=== PATIENT | male | born 1970 | race African-American/Black ===

== ENCOUNTER 2021-06-30 20:06 | Emergency (ER) | payer OTHER ==
[~2021-06-30] VITALS: Ht 175.3 cm; Wt 77.1 kg
--- NOTE | 2021-06-30 20:10 | NUR ---
BIB 102 FOR FOUND LAYING DOWN ON THE GRASS. ADMITTED ON DRINKING ALCOHOL. PT AWAKE. TOLERATING R/A WELL WITH NO SOB. SAFETY MEASURES IN PLACE
[2021-06-30] MEDS ORDERED: HALOPERIDOL LACTATE INJ 5 MG/ML VIAL IM ONE (21:30)
[2021-06-30] MEDS ORDERED: HALOPERIDOL LACTATE INJ 5 MG/ML VIAL ONE (21:30)
--- NOTE | 2021-06-30 22:29 | NUR ---
PATIENT DISCHARGED WITH A IN STABLE CONDITION. PATIENT ALERT AND ORIENTED X3. AMBULATORY WITH A STEADY GAIT. BELONGINGS OF PATIENT GIVEN BACK PROVIDED PATIENT WITH FOOD AND WATER.
[2021-06-30 22:31] VITALS: BP 139/87
== END 2021-06-30 22:31 | disposition home or self-care (01) ==
LOC: EDBD 20:10 → ER 20:10
DX: F10.129 Alcohol abuse with intoxication, unspecified (principal); F12.929 Cannabis use, unspecified with intoxication, unspecified; R45.6 Violent behavior; R45.1 Restlessness and agitation; Z59.00 Homelessness unspecified; Y90.9 Presence of alcohol in blood, level not specified
CPT/HCPCS: 96372; 99283; J1630

== ENCOUNTER 2021-08-02 15:06 | Emergency (ER) | payer OTHER ==
[~2021-08-02] VITALS: Ht 167.6 cm; Wt 72.6 kg
[2021-08-02 15:13] VITALS: BP 151/88
== END 2021-08-02 15:43 | disposition home or self-care (01) ==
LOC: ER 15:09
DX: R44.3 Hallucinations, unspecified (principal)